=== PATIENT | female | born 2005 | race Caucasian/White ===

== ENCOUNTER 2024-07-09 10:59 | Emergency (ER) | payer SELFPAY ==
[~2024-07-09] VITALS: Ht 152.4 cm; Wt 62.0 kg
[2024-07-09 11:06] VITALS: O2SAT 99
[2024-07-09 11:11] VITALS: BP 113/74; PULSE 71; RESP 16; TEMP 98.5; O2SAT 100
[2024-07-09 11:40] LABS: BASOPHILS % 0.4 % (0.0-2.0); EOSINOPHILS % 2.1 % (0.0-5.0); HEMATOCRIT. 39.5 % (36.0-48.0); HEMOGLOBIN. 13.4 g/dL (12.0-16.0); LYMPHOCYTES % 28.9 % (20.0-50.0); MEAN CORPUSCULAR HEMOGLOBIN 30.7 pg (28.0-32.0); MEAN CORPUSCULAR HGB CONC 34.1 g/dL (31.0-37.0); MEAN CORPUSCULAR VOLUME 90.2 fL (81.0-99.0); MEAN PLATELET VOLUME 7.6 fl (7.4-10.4); MONOCYTES % 7.6 % (2.0-8.0); PLATELET 312 x1000/uL (130-400); RED BLOOD CELL COUNT 4.37 mill/uL (4.2-5.4); RED CELL DISTRIBUTION WIDTH 13.1 % (11.6-14.6); WHITE BLOOD COUNT 6.3 x1000/uL (4.5-11.0)
[2024-07-09] MEDS: KETOROLAC 30MG/ML VIAL IM ONE (11:45)
[2024-07-09 11:48] LABS: CHLORIDE 108 mEq/L (98-107); POTASSIUM 4.2 mEq/L (3.5-5.1); SODIUM 140 mEq/L (136-145)
[2024-07-09 11:49] LABS: CALCIUM 9.3 mg/dL (8.7-10.4); CARBON DIOXIDE 28 mEq/L (21-32)
[2024-07-09 11:54] LABS: CREATININE 0.7 mg/dL (0.6-1.0); GLUCOSE 90 mg/dL (70-105); UREA NITROGEN BLOOD 12 mg/dL (9-23)
[2024-07-09 12:11] LABS: HCG SCREEN NEGATIVE
[2024-07-09 12:38] LABS: CLARITY URINE CLEAR (CLEAR); COLOR URINE YELLOW (YELLOW); GLUCOSE URINE NEGATIVE (NEGATIVE); KETONES URINE NEGATIVE (NEGATIVE); LEUKOCYTE ESTERASE URINE NEGATIVE (NEGATIVE); NITRITE URINE NEGATIVE (NEGATIVE); OCCULT BLOOD URINE 3+ (NEGATIVE); PROTEIN URINE NEGATIVE (NEGATIVE); SPECIFIC GRAVITY URINE 1.021 (1.005-1.030); UROBILINOGEN URINE 0.2 E.U./dL (0.2-1.0)
[2024-07-09 12:59] LABS: BACTERIA URINE TRACE; RBC URINE TNTC /hpf (0-2); SQUAMOUS EPITHELIAL CELL URINE 2+ /lpf (RARE/1+); YEAST URINE NONE SEEN
[2024-07-09] MEDS ORDERED: NITR-87 MT (14:51)
[2024-07-09] MEDS ORDERED: IBUP-2029 MT (14:51)
== END 2024-07-09 17:04 | disposition home or self-care (01) ==
LOC: ER 12:43
DX: N93.8 Other specified abnormal uterine and vaginal bleeding (principal); R11.2 Nausea with vomiting, unspecified
CPT/HCPCS: 99285; 76830; 76856; 80048; 81003; 84703; 85025; 86850; 86900; 86901; 36415; 96372; J1885

== ENCOUNTER 2025-06-04 16:19 | Emergency (ER) | payer MEDICAID ==
[~2025-06-04] VITALS: Ht 154.9 cm; Wt 72.0 kg
[~2025-06-04 16:19] MED LIST: IBUP-1455 MT; NITR-87 MT
[2025-06-04 16:38] VITALS: O2SAT 100
[2025-06-04 18:53] LABS: BASOPHILS % 0.3 % (0.0-2.0); EOSINOPHILS % 2.4 % (0.0-5.0); HEMATOCRIT. 38.2 % (36.0-48.0); HEMOGLOBIN. 12.9 g/dL (12.0-16.0); LYMPHOCYTES % 28.3 % (20.0-50.0); MEAN PLATELET VOLUME 7.5 fl (7.4-10.4); MONOCYTES % 7.5 % (2.0-8.0); NEUTROPHILS % 61.5 % (40.0-76.0); PLATELET 306 x1000/uL (130-400); RED BLOOD CELL COUNT 4.27 mill/uL (4.2-5.4); RED CELL DISTRIBUTION WIDTH 13.1 % (11.6-14.6)
[2025-06-04 19:18] LABS: CREATININE 0.9 mg/dL (0.6-1.0)
[2025-06-04 19:19] LABS: UREA NITROGEN BLOOD 9 mg/dL (9-23)
[2025-06-04 19:20] LABS: ASPARTATE AMINOTRANSFERASE 55 IU/L (<34)
[2025-06-04 19:21] LABS: B-HCG QUANTITATIVE < 1 mIU/mL (<6); BILIRUBIN DIRECT < 0.1 mg/dL (<=3.0); BILIRUBIN TOTAL 0.3 mg/dL (0.1-1.0); PROTEIN TOTAL 7.2 g/dL (6.0-8.3)
[2025-06-04 20:08] VITALS: BP 129/83; PULSE 82; RESP 18; TEMP 36.9; O2SAT 100
== END 2025-06-04 20:10 | disposition home or self-care (01) ==
LOC: ER 16:19
DX: O20.9 Hemorrhage in early pregnancy, unspecified (principal); R10.22 Pelvic and perineal pain left side; Z3A.09 9 weeks gestation of pregnancy
CPT/HCPCS: 36415; 76830; 76856; 80048; 80076; 81025; 84702; 85025; 86850; 86900; 99284